=== PATIENT | female | born 1995 | race Caucasian/White ===

== ENCOUNTER 2017-06-09 15:39 | Emergency (ER) | payer BC ==
[2017-06-09 15:40] VITALS: BMI 32.3
[2017-06-09 16:29] VITALS: TEMP 98.8
--- NOTE | 2017-06-09 16:56 | ED PDOC ---
Arrival/HPI - General Chief Complaint: Lower Extremity Problem/Injury Time Seen by Provider: 06/09/17 16:02 Historian: Patient - History of Present Illness Narrative History of Present Illness (Text): 06/09/17 16:52 Pt is a 22 year old female who presents to the emergency department for left- side leg and hip pain x half a day. She describes falling through some drywall with the right foot and leg and straining the left leg thigh, hip and low back. Patient states that she feels 'bruised' and sore but has no issues walking. Denies back pain, LOC, head trauma, altered sensation, decreased motor function. Time/Duration: 1-3 hours Symptom Onset: Sudden Symptom Course: Unchanged Quality: Aching Severity Level: 1 Context: Home Past Medical History - Provider Review Nursing Documentation Reviewed: Yes - Travel History Have you recently traveled outside [place] w/in the past 3 mons?: No - Infectious Disease Hx of Infectious Diseases: None - Tetanus Immunization Tetanus Immunization: Unknown - Cardiac Hx Cardiac Disorders: No - Pulmonary Hx Asthma: Yes - Neurological Hx Neurological Disorder: No - HEENT Hx HEENT Disorder: No - Renal Hx Renal Disorder: No - Endocrine/Metabolic Hx Endocrine Disorders: No - Hematological/Oncological Hx Blood Disorders: No - Integumentary Hx Dermatological Disorder: No - Musculoskeletal/Rheumatological Hx Musculoskeletal Disorders: No - Gastrointestinal Hx Gastrointestinal Disorders: No - Genitourinary/Gynecological Hx Genitourinary Disorders: No - Psychiatric Hx Psychophysiologic Disorder: No Hx Anxiety: No Hx Bipolar Disorder: No Hx Depression: No Hx Emotional Abuse: No Hx Hallucinations: No Hx Panic Disorder: No Hx Post Traumatic Stress Disorder: No Hx Psychosis: No Hx Physical Abuse: No Hx Schizophrenia: No Hx Sexual Abuse: No Hx Substance Use: No - Past Surgical History Past Surgical History: No Previous - Anesthesia Hx Anesthesia: No - Suicidal Assessment Feels Threatened In Home Enviroment: No Family/Social History - Physician Review Nursing Documentation Reviewed: Yes Family/Social History: Unknown Family HX Smoking Status: Never Smoked Hx Alcohol Use: No Hx Substance Use: No Hx Substance Use Treatment: No Allergies/Home Meds Allergies/Adverse Reactions: Allergies No Known Allergies Allergy (Verified 06/09/17 15:57) Home Medications: Home Meds Medication Instructions Recorded Confirmed Albuterol Sulfate [Ventolin Hfa] 0.09 mg IH DAILY 07/21/14 06/09/17 Review of Systems - Review of Systems Constitutional: Normal Eyes: Normal ENT: Normal Respiratory: Normal Cardiovascular: Normal Gastrointestinal: Normal Genitourinary Female: Normal Musculoskeletal: Normal, Other (muscle ache in left leg and hip) Skin: Normal Neurological: Normal Endocrine: Normal Hemo/Lymphatic: Normal Psychiatric: Normal Physical Exam Vital Signs Reviewed: Yes Vital Signs Temp Pulse Resp BP Pulse Ox 06/09/17 17:26 90 17 135/87 100 06/09/17 15:57 98.8 F 108 H 16 141/90 95 Temperature: Afebrile Blood Pressure: Normal Pulse: Tachycardic Respiratory Rate: Normal Appearance: Positive for: Well-Appearing, Non-Toxic, Comfortable Pain Distress: Mild Mental Status: Positive for: Alert and Oriented X 3 - Systems Exam Head: Present: Atraumatic, Normocephalic Neck: Present: Normal Range of Motion Respiratory/Chest: Present: Clear to Auscultation, Good Air Exchange. No: Respiratory Distress, Accessory Muscle Use Cardiovascular: Present: Regular Rate and Rhythm, Normal S1, S2. No: Murmurs Abdomen: Present: Normal Bowel Sounds. No: Tenderness, Distention, Peritoneal Signs Back: Present: Normal Inspection Upper Extremity: Present: Normal Inspection. No: Cyanosis, Edema Lower Extremity: Present: Normal Inspection, NORMAL PULSES, Normal ROM, Tenderness (left hamstring and ischial tubersosity), Neurovascularly Intact, Capillary Refill < 2 s. No: Edema, CALF TENDERNESS, Cyanosis, Robert's Sign, Swelling, Erythema, Deformity, Temperature Abnormalties, Other Neurological: Present: GCS=15, CN II-XII Intact, Speech Normal, Motor Func Grossly Intact Skin: Present: Warm, Dry, Normal Color. No: Rashes, Diaphoretic, Erythematous, Induration, Hot, Cold, Pale, Laceration, Abscess, Abrasion, Other Psychiatric: Present: Alert, Oriented x 3, Normal Insight, Normal Concentration Medical Decision Making ED Course and Treatment: 06/09/17 16:56 Impression Pt is a 22 year old female who presents to the emergency department for left- side leg and hip pain x half a day. Point tender along the left hamstring belly to the ischial tuberosity, mild left ankle pain, no erythema or edema or ecchymosis appreciated Dx: muscle strain Plan POC hcg Toradol 15 mg IM assess and dispo 06/09/17 17:12 Progress Note Pt declined Toradol and hcg not required Discussed medication use for home VSS and ambulated well out of the ER Note for work Disposition/Present on Arrival - Present on Arrival Any Indicators Present on Arrival: Yes History of DVT/PE: No History of Uncontrolled Diabetes: No Urinary Catheter: No History of Decub. Ulcer: No History Surgical Site Infection Following: None - Disposition Have Diagnosis and Disposition been Completed?: Yes Diagnosis: Muscle strain Disposition: HOME/ ROUTINE Disposition Time: 17:01 Patient Plan: Discharge Condition: GOOD Discharge Instructions (ExitCare): Muscle Strain Additional Instructions: Dear Courtney, Please take the medication as prescribed for your muscle strain. If you experience worsening of pain or other alarming symptoms, return to the ER for evaluation. All the best in your recovery, BUFFY Saleh Prescriptions: Ibuprofen [Motrin Tab] 600 mg PO Q6 PRN 5 Days #20 tab PRN Reason: pain/fever Referrals: Guera Mcdowell MD [Primary Care Provider] - Follow up with primary Forms: [employer] ([place]), WORK NOTE
[2017-06-09 17:28] VITALS: BP 135/87; PULSE 90; RESP 17; O2SAT 100
== END 2017-06-09 17:28 | disposition home or self-care (01) ==
LOC: ED 15:39
DX: S76.912A Strain of unspecified muscles, fascia and tendons at thigh level, left thigh, initial encounter (principal); W19.XXXA Unspecified fall, initial encounter; Y92.89 Other specified places as the place of occurrence of the external cause